=== PATIENT | female | born 1995 | race Caucasian/White ===

== ENCOUNTER 2023-02-19 17:01 | Emergency (ER) | payer OTHER, SELFPAY ==
[2023-02-19 17:11] VITALS: BP 107/73; PULSE 68; RESP 12; TEMP 36.4; O2SAT 99; BMI 19.7
--- NOTE | 2023-02-19 18:07 | DI.RAD.S_ITS ---
PROCEDURE: XR KNEE LT 3V INDICATIONS: injury TECHNIQUE: 3 views of the knee were acquired. COMPARISON: None. FINDINGS: Bones: No fractures or dislocations. No suspicious bony lesions. Soft tissues: No joint effusion. No suspicious soft tissue calcifications. IMPRESSION: No acute bony abnormality or significant effusion. Dictated by: Ari aRshid M.D. on 02/19/2023 at 17:47 Approved by: Ari Rashid M.D. on 02/19/2023 at 17:47
[2023-02-19] MEDS: IBUPROFEN 400 MG TABLET 800 MG PO (18:12)
--- NOTE | 2023-02-19 18:15 | ED_ITS ---
HPI - Head Injury <Nelson June PA-C - Last Filed: 02/19/23 18:49> General Chief complaint: Head Injury Stated complaint: Accident at work, Boxes landed on head and knee Time Seen by Provider: 02/19/23 17:56 Mode of arrival: Family Vehicle History of Present Illness HPI Narrative: 27-year-old female presents to the ED status post a closed head injury sustained at work just prior to arrival. Patient states that she had a 25 lb box strike the right front side of her head. Patient denies loss of consciousness. Patient states that since then she has experienced a headache, nausea, photosensitivity, lightheaded. Patient denies vomiting, vision changes. Patient also states that 1 of the boxes struck her left knee. Patient is limping due to the pain. Patient denies numbness, tingling, weakness. Related Data Allergies Allergy/AdvReac Type Severity Reaction Status Date / Time No Known Drug Allergies Allergy Verified 02/19/23 17:15 Review of Systems <Nelson June PA-C - Last Filed: 02/19/23 18:49> Constitutional Constitutional: Denies chills, Denies fatigue, Denies fever(s), Denies frequent falls, Reports headache(s), Denies lethargy and Denies weakness Eyes Eyes: Denies change in vision, Denies eye discharge, Denies irritation, Denies loss of vision and Reports photophobia ENT Ears, Nose, Mouth, and Throat: Denies change in voice, Denies dizziness, Reports headache(s), Denies neck pain, Denies sore throat and Denies throat swelling Cardiovascular Cardiovascular: Denies chest pain, Denies irregular heart rhythm, Reports lightheadedness, Denies palpitations, Denies dyspnea, Denies dyspnea on exertion and Denies orthopnea Respiratory Respiratory: Denies cough, Denies dyspnea, Denies dyspnea on exertion and Denies wheezing Gastrointestinal Gastrointestinal: Denies abdominal pain, Denies change in bowel habits, Denies diarrhea, Reports nausea and Denies vomiting Musculoskeletal Musculoskeletal: Denies neck pain and Denies numbness Integumentary/Breasts Skin/Breast: Denies pruritus, Denies erythema, Denies rash and Denies wounds Neurologic Neurologic: Denies behavioral changes, Denies confusion, Denies dizziness, Denies frequent falls, Reports headache(s), Denies loss of vision, Denies numbness and Denies weakness Psychiatric Psychiatric: Denies anxiety, Denies behavioral changes, Denies confusion, Denies depression, Denies homicidal ideation and Denies suicidal ideation Endocrine Endocrine: Denies fatigue, Denies flushing and Denies palpitations Hematologic/Lymphatic Hematologic/Lymphatic: Denies easy bruising Allergic/Immunologic Allergic/Immunologic: Denies urticaria, Denies throat swelling and Denies wheezing Patient History <Nelson June PA-C - Last Filed: 02/19/23 18:49> Social History Smoking Status: Never smoker Smoking Status: Never smoker alcohol intake frequency: holidays/special occasions only Substance Use Type: marijuana Exam <Nelson June PA-C - Last Filed: 02/19/23 18:49> Narrative Exam Narrative: Const General:?cooperative, healthy appearing and comfortable HENMT Head:?normal to inspection Ears:?hearing grossly normal bilaterally Nose:?external nose normal Face and sinus:?normal facial exam and sinuses nontender Mouth:?oral mucosae normal Throat:?posterior oropharynx normal Eyes General:?appearance normal, both eyes and all related structures Neck Neck:?normal visual inspection and no lymphadenopathy noted Resp Effort & Inspection:?normal respiratory effort Auscultation:?clear to auscultation bilaterally Cardio Rate:?regular rate Rhythm:?regular rhythm Musculoskeletal No tenderness to palpation, swelling, erythema, deformities noted to the left knee. Patient is however limping unable to bear full weight. Patient is neurovascularly intact. Neuro General:?patient alert, patient awake and patient oriented x3; PERRLA; CN 1 through 12 intact bilaterally; neurologically intact Initial Vital Signs Initial Vital Signs: Vital Signs Temperature 97.6 F 02/19/23 17:11 Pulse Rate 68 02/19/23 17:11 Respiratory Rate 12 02/19/23 17:11 Blood Pressure 107/73 02/19/23 17:11 Pulse Oximetry 99 02/19/23 17:11 Oxygen Delivery Method Room Air 02/19/23 17:11 <Scarlet Clark DO - Last Filed: 02/20/23 11:29> Initial Vital Signs Initial Vital Signs: Vital Signs Temperature 97.6 F 02/19/23 17:11 Pulse Rate 68 02/19/23 17:11 Respiratory Rate 12 02/19/23 17:11 Blood Pressure 107/73 02/19/23 17:11 Pulse Oximetry 99 02/19/23 17:11 Oxygen Delivery Method Room Air 02/19/23 17:11 Course <Nelson June PA-C - Last Filed: 02/19/23 18:49> Orders Ordered: Discontinued Medications Ibuprofen (Ibuprofen 400 Mg Tablet) 800 mg PO NOW ONE Stop: 02/19/23 18:10 Last Admin: 02/19/23 18:12 Dose: 800 mg Documented By: ES Vital Signs Vital signs: Vital Signs - 8 hr 02/19/23 17:11 Temperature 97.6 F Pulse Rate 68 Respiratory Rate 12 Blood Pressure 107/73 Pulse Oximetry 99 Oxygen Delivery Method Room Air <Scarlet Clark DO - Last Filed: 02/20/23 11:29> Orders Ordered: Discontinued Medications Ibuprofen (Ibuprofen 400 Mg Tablet) 800 mg PO NOW ONE Stop: 02/19/23 18:10 Last Admin: 02/19/23 18:12 Dose: 800 mg Documented By: ES Vital Signs Vital signs: Vital Signs - 8 hr 02/19/23 17:11 Temperature 97.6 F Pulse Rate 68 Respiratory Rate 12 Blood Pressure 107/73 Pulse Oximetry 99 Oxygen Delivery Method Room Air MDM - Head Injury <Nelson June PA-C - Last Filed: 02/19/23 18:49> MDM Narrative Medical decision making narrative: 27-year-old female presents to the ED status post a closed head injury sustained at work just prior to arrival. Per patient's history and physical exam, negative Potter head CT rule, no imaging indicated for the head injury. Pat ient is most consistent with a concussion. Will treat headache with ibuprofen. Will get an x-ray of the knee to rule out x-ray/dislocation. Will reassess. Counseled patient on concussive symptoms. Recommend continued Tylenol and ibuprofen for headache and knee pain. Will call patient if x-ray is abnormal. Otherwise treat like a knee sprain. Recommend follow-up with PCP for postconcussion syndrome management. ED return precautions discussed with patient. Patient verbalized understanding. Medical records reviewed: Yes Discharge Plan Departure Patient Disposition: Home Clinical Impression: Closed head injury Qualifiers: Encounter type: initial encounter Qualified Code(s): S09.90XA - Unspecified injury of head, initial encounter Knee pain Qualifiers: Chronicity: acute Laterality: left Qualified Code(s): M25.562 - Pain in left knee Instructions: Concussion, DI for Closed Head Injury, DI for Knee Pain Activity Restrictions/Additional Instructions: You were evaluated in the ED today for a head injury and knee injury. It is quite likely that you suffered a concussion from the head injury today. It is common to have a headache, nausea, sporadic vomiting, fatigue, sleepiness, depression, agitation following a head injury. It is advised that you limit his screen time and reading time in order to recover from the injury. Return to the ED if you are persistently vomiting, you have worsening symptoms. Your knee pain is likely due to a musculoskeletal sprain/strain. We did an x-ray in the ED today and will call you if there are any abnormalities. In the meanwhile, you may take ibuprofen and Tylenol for pain control. Please follow-up with your PCP as soon as possible. Stand Alone Forms: Patient Portal/API ED Sign-out <Scarlet Clark DO - Last Filed: 02/20/23 11:29> Cosign ED Attending Zaheer Attestation: I was immediately available in the department for consultation.
== END 2023-02-19 18:55 | disposition home or self-care (01) ==
PROVIDERS: Emergency Provider Student in an Organized Health Care Education/Training Program
DX: S09.90XA Unspecified injury of head, initial encounter (principal); M25.562 Pain in left knee; W22.8XXA Striking against or struck by other objects, initial encounter
CPT/HCPCS: 73562; 99283